=== PATIENT | female | born 2005 | race Caucasian/White ===

== ENCOUNTER 2024-12-22 22:45 | Observation (INO) ==
[2024-12-22] MEDS: ACETAMINOPHEN 900 MG/90 ML BAG IV ONE (23:55)
[2024-12-23 00:06] LABS: CREATININE 0.59 mg/dL (0.60-1.30)
[2024-12-23 00:16] LABS: IMMATURE GRANULOCYTE # (AUTO) 0.1 (0.0-1.0); IMMATURE GRANULOCYTE % (AUTO) 0.4 % (0.0-5.0); RDW COEFFICIENT OF VARIATION 11.8 % (11.6-14.8)
--- NOTE | 2024-12-23 00:21 | ED.PDOC ---
General HPI ED Provider: Dr. 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 She stopped and had difficulty walking and it felt like her previous femoral neck stress fracture in [facility]. She didn't fall, tripped and was running on grass and pavement. 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 She average running 100-120 miles a week since February; prior to that, she was running about 80 miles a week. Time Seen by Provider: 12/22/24 23:23 Mode of Arrival: Walk-In Information Source: Patient Exam Limitations: No limitations Referred to ED by: Other (Self) Nursing and Triage Documentation Reviewed and Agree: Yes Opioid Naive vs. Tolerant Does Patient Take Opioids?: No What is Opioid Naive?: *Opioid Naive implies the patient is not already taking opioids or not chronically receiving opioids on a daily basis. *PRN dosing is not "usually" associated with tolerance. *Patients are at higher risk of over-sedation and aspiration. What is Opioid Tolerant?: *Opioid Tolerance implies less than the expected response to an opioid. *Acquired tolerance is defined by the patient taking 60mg of oral morphine daily (or equianalgesic dose of another opioid) for 1 week or more. *Often associated with chronic pain. *May take more than usual dose to achieve desired pain control. Review of Systems Review Of Systems Constitutional: Reports No symptoms Ears, Nose, Mouth, Throat: Reports No symptoms Respiratory: Reports No symptoms Cardiac: Reports No symptoms GI: Reports No symptoms Musculoskeletal: Reports Joint pain; Denies Back pain or Neck pain Skin: Reports No symptoms Neurological: Reports No symptoms Physical Exam Physical Exam Appearance: Reports Well-appearing and Well-nourished Ill-appearing: None Pain Distress: Moderate Eyes: Reports EOMI Neck: Supple Respiratory: Reports Airway patent, Breath sounds clear and Breath sounds diminished Cardiovascular: Reports RRR, Pulses normal and No rub GI/: Reports Soft, Nontender and No masses Musculoskeletal: Reports Normal strength and ROM intact Skin: Reports Warm, Dry and Normal color Neurological: Reports Sensation intact and Motor intact (limited L hip flexion due to pain. ) Psychiatric: Reports Affect appropriate and Mood appropriate Course Course 12/22/24 23:49 12/22/24 23:49 Orders, Labs, Meds: Lab Review 12/22/24 12/23/24 23:49 00:20 WBC 14.22 H RBC 4.33 Hgb 13.3 Hct 40.1 MCV 92.6 MCH 30.7 MCHC 33.2 RDW Coeff of Kirk 11.8 Plt Count 271 Immature Gran % (Auto) 0.4 Neut % (Auto) 77.3 H Lymph % (Auto) 12.0 [place] % (Auto) 9.3 Eos % (Auto) 0.5 Baso % (Auto) 0.5 Neut # (Auto) 11.0 H Lymph # (Auto) 1.7 [place] # (Auto) 1.3 Eos # (Auto) 0.1 Baso # (Auto) 0.1 Immature Gran # (Auto) 0.1 Sodium 134.5 Potassium 3.67 Chloride 104.9 Carbon Dioxide 25.2 Anion Gap 8.07 BUN 16.8 Creatinine 0.59 L Estimated GFR (MDRD) 129.00 BUN/Creatinine Ratio 28.47 Glucose 89.6 Calcium 9.14 Total Bilirubin 0.58 AST 334.2 H ALT 69.8 H Alkaline Phosphatase 82.1 Total Creatine Kinase 8925.7 H CK-MB (CK-2) 270.000 H* CK-MB (CK-2) % 3.0200 Total Protein 6.83 Albumin 3.84 Globulin 2.99 Albumin/Globulin Ratio 1.28 Urine Color Yellow Urine Clarity Clear Urine pH 7.0 Ur Specific [place] 1.025 Urine Protein 1+ H Urine Glucose (UA) Negative Urine Ketones Negative Urine Blood Negative Urine Nitrite Negative Urine Bilirubin Negative Urine Urobilinogen 0.2 Ur Leukocyte Esterase Negative Urine Microscopic RBC 0-2 Urine Microscopic WBC 2-5 Ur Squamous Epith Cells 5-10 Urine Mucus 2+ Orders Category Date Time Status PLACE PATIENT OBSERVATION .TO [facility] (NON-MONITORED ADMISSION 12/23/24 01:48 Ordered BED) ACTIVITY .Up ad Silvina CARE 12/23/24 01:48 Ordered INTAKE & OUTPUT Q8HR CARE 12/23/24 01:47 Ordered IP: INSERT SALINE LOCK ONCE CARE 12/23/24 01:47 Ordered VITAL SIGNS Q8HR CARE 12/23/24 01:47 Ordered REGULAR DIET DIETARY 12/23/24 Breakfast Ordered Saline Lock [ED IV/MEDIPORT/POWERPORT] .ONCE EMERGENCY 12/22/24 23:31 Active CBC W/ AUTO DIFF Stat LAB 12/23/24 00:00 Completed CMP [COMPREHENSIVE METABOLIC PANEL] Stat LAB 12/22/24 23:49 Completed COMPREHENSIVE METABOLIC PANEL DAILY@0600 LAB 12/23/24 06:00 Ordered COMPREHENSIVE METABOLIC PANEL DAILY@0600 LAB 12/24/24 06:00 Ordered CPK [CREATINE KINASE] Stat LAB 12/22/24 23:49 Completed CREATINE KINASE Q8H LAB 12/23/24 08:00 Ordered CREATINE KINASE Q8H LAB 12/23/24 16:00 Ordered URINALYSIS C & S IF INDICATED Stat LAB 12/23/24 00:20 Completed 0.9 % Sodium Chloride [Saline Flush] Meds 12/22/24 23:31 Active 1 syr IVF PRN PRN Acetaminophen Meds 12/22/24 23:31 Discontinued 900 mg in 90 ml IV ONCE Fentanyl Citrate/Pf [Sublimaze] Meds 12/23/24 01:54 Ordered 50 mcg IVP Q4HR PRN Hydrocodone Bit/Acetaminophen [Sharon 5-325] Meds 12/23/24 01:48 Ordered 1 tab PO Q4-6H PRN Ondansetron HCl/Pf [Zofran Sdv] Meds 12/23/24 01:48 Ordered 4 mg IVP Q6-8H PRN Sodium Chloride 0.9% [Sodium Chloride] 1,000 ml Meds 12/23/24 02:00 Ordered IV 150 mls/hr Sodium Chloride 0.9% [Sodium Chloride] 1,000 ml Meds 12/23/24 00:12 Active IV 250 mls/hr RESUSCITATION STATUS Routine OTHERS 12/23/24 01:[address] HIP LEFT WITHOUT CONTRAST Stat RADS 12/23/24 00:31 Completed HIP, LEFT 2VWS W OR W/O PELVIS Stat RADS 12/22/24 23:31 Completed Medications Generic Name Dose Route Start Last Admin Trade Name Freq PRN Reason Stop Dose Admin Sodium Chloride 1,000 mls @ 250 mls/hr 12/23/24 00:12 12/23/24 00:23 Sodium Chloride IV 12/23/24 04:11 250 mls/hr .Q4H ONE Administration Sodium Chloride 1 syr 12/22/24 23:31 0.9% Sodium Chloride 10 Ml Disp.Syrin IVF PRN PRN To flush IV Discontinued Medications Generic Name Dose Route Start Last Admin Trade Name Freq PRN Reason Stop Dose Admin Acetaminophen 900 mg in 90 mls @ 400 mls/hr 12/22/24 23:31 12/22/24 23:55 Acetaminophen 15 mg/kg (900 mg) 12/22/24 23:44 400 mls/hr IV Administration ONCE ONE Suspected rhabdomyolysis and possible hairline fx. CT scan of the hip neg for fracture. Will admit to [facility] for IV hydration. She is in [employer] and due to fly back soon Vital Signs: Temp Pulse Resp BP Pulse Ox 12/22/24 22:54 98.0 F 68 16 106/75 100 Discharge Plan Discharge Patient Disposition: PLACED OBSERVATION Discharge Problem: Exertional rhabdomyolysis, Acute pain of left hip Did you review [place] [facility] for ALL controlled substances?: Not Applicable ED Provider: SHIRA HYMAN Condition: Fair
[2024-12-23] MEDS: SODIUM CHLORIDE 1,000 ML IV ONE (00:23)
[2024-12-23 00:30] LABS: GLUCOSE, URINE (UA) Negative (NEGATIVE); LEUKOCYTE ESTERASE ,URINE Negative (NEGATIVE); URINE, BLOOD Negative (NEGATIVE)
[2024-12-23 00:31] LABS: URINE RBC, MICROSCOPIC 0-2 (0-2)
[2024-12-23 00:38] LABS: CKMB % 3.02
[2024-12-23 00:39] LABS: CREATINE KINASE MB 270.0 ng/ml (0.0-2.38)
--- NOTE | 2024-12-23 01:32 | CT ---
EXAM: CT OF THE LEFT HIP WITHOUT CONTRAST TECHNIQUE: CT of the left hip was performed without IV contrast. Multiplanar reformats were made. HISTORY: Hip pain after a long distance run. COMPARISON: Radiographs 12/23/2024. FINDINGS: No fracture or dislocation. Minor degenerative changes of the left sacroiliac joint, left hip joint, and at the pubic symphysis. IMPRESSION: No acute findings. All CT scans are performed using dose optimization techniques as appropriate to the performed exam and include at least one of the following: Automated exposure control, adjustment of the mA and/or kV according to size, and the use of iterative reconstruction technique.
--- NOTE | 2024-12-23 01:32 | DI ---
EXAM: LEFT HIP 2 VIEW HISTORY: Hip pain IMPRESSION: No bony or articular abnormality of the left hip. Negative exam.
[2024-12-23] MEDS ORDERED: NORCO 5-325 PO PRN (01:48)
[2024-12-23] MEDS ORDERED: ZOFRAN SDV IVP PRN (01:48)
[2024-12-23] MEDS ORDERED: SUBLIMAZE IVP PRN (01:54)
[2024-12-23 03:12] VITALS: BMI 21.7
[2024-12-23] MEDS: SODIUM CHLORIDE 1,000 ML IV SCH (05:17)
[2024-12-23 05:51] LABS: CREATININE 0.58 mg/dL (0.60-1.30)
[2024-12-23] MEDS: SYNTHROID PO SCH (07:57)
[2024-12-23 08:35] LABS: CKMB % 0
[2024-12-23 08:40] LABS: CREATINE KINASE MB 136.000 ng/ml (0.0-2.38)
[2024-12-23] MEDS: TYLENOL PO PRN (10:28)
[2024-12-23 14:56] LABS: CKMB % 0
[2024-12-23 15:01] LABS: CREATINE KINASE MB 79.200 ng/ml (0.0-2.38)
--- NOTE | 2024-12-23 15:09 | PCM ---
Date of Service Date Seen by Provider: 12/23/24 Time Seen by Provider: 09:15 Admit Day/Time Admission Date: 12/23/24 Admission Time: 02:00 Reason for Admission Chief Complaint: LFT LEG INJURY Hospital Provider Hospital Provider: ARMAAN FIERRO, [facility] History of Present Illness History of Present Illness: 19 yo female with pmh of thyroid disease presented to the ER with L hip pain following running the [employer] 100 mile race. Patient states she was only abl e to complete 75 miles due to the pain. States pain is worse with flexing the hip. Xray and CT scan negative. CK found to be 8900. Received 1L NS in ER. Admitted to med/surg observation. Case Discussed With Case Discussed With: Patient's case was discussed with the ER Physicians, Dr. Scanlon. [facility] Medical History (Updated 12/23/24 @ 15:19 by ARMAAN FIERRO) Thyroid disease E07.9 - Disorder of thyroid, unspecified (ICD-10) Surgical History No history of previous surgery Family History MATERNAL GRANDMOTHER Colon cancer Other Cancer Social History Smoking and tobacco status: Never smoker Alcohol intake: current Alcohol intake frequency: holidays/special occasions only Counseling given: No Details: Occasionally has a drink Substance use type: does not use Special mira needs: No Agree to transfusion: Yes Adopted: No Caregiver/support person: No Foster care: No Household members: none Housing: apartment Marital status: S SINGLE Lives independently: Yes Daycare: no daycare Number of children: 0 Highest education level completed: some college, no degree Financial difficulty paying for basics: somewhat hard 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 ([employer]) known or potential exposure: none FDC: No Current occupational status: student Current occupation: Student/[employer] Current occupational exposures/hazards: Yes Pets and animals: No Leisure activites: sports and exercise History of recent travel: Yes (Just in the continental [place]) Sexually active: No Do you think of yourself as: straight/heterosexual Current gender identity: female Helmet use: Yes Drives intoxicated or rides with intoxicated lifter driver: No Current diet type/program: vegetarian Well-balanced diet: daily Water heater temperature set < 120 degrees: Yes Working smoke detector in home: Yes Fire extinguisher in home: Yes Carbon monoxide detector in home: No Firearms in home: No What type of physical activity do you participate in?: running Allergies Allergies Allergy/AdvReac Type Severity Reaction Status Date / Time No Known Allergies Allergy Verified 12/22/24 23:03 Current Medications Home Medications Acetaminophen (Acetaminophen 325 Mg Tablet) 650 mg PO Q4H PRN PRN Reason: Pain Last Admin: 12/23/24 10:28 Dose: 650 mg Sodium Chloride (Sodium Chloride) 1,000 mls @ 150 mls/hr IV .Q6H40M [facility] Last Admin: 12/23/24 13:43 Dose: 150 mls/hr Levothyroxine Sodium (Levothyroxine Sodium 50 Mcg Tablet) 50 mcg PO QDAC2 [facility] Last Admin: 12/23/24 07:57 Dose: 50 mcg Ondansetron HCl (Ondansetron Hcl/Pf 4 Mg/2 Ml Sdv) 4 mg IVP Q6-8H PRN PRN Reason: Nausea / Vomiting Sodium Chloride (0.9% Sodium Chloride 10 Ml Disp.Syrin) 1 syr IVF PRN PRN PRN Reason: To flush IV levothyroxine 50 mcg tablet (Euthyrox) 50 mcg PO DAILY 12/22/24 [History Confirmed 12/23/24] Opioid Naive vs. Tolerant Does Patient Take Opioids?: No Is Patient Opioid Naive?: Yes What is Opioid Naive?: *Opioid Naive implies the patient is not already taking opioids or not chronically receiving opioids on a daily basis. *PRN dosing is not "usually" associated with tolerance. *Patients are at higher risk of over-sedation and aspiration. Is Patient Opioid Tolerant?: No What is Opioid Tolerant?: *Opioid Tolerance implies less than the expected response to an opioid. *Acquired tolerance is defined by the patient taking 60mg of oral morphine daily (or equianalgesic dose of another opioid) for 1 week or more. *Often associated with chronic pain. *May take more than usual dose to achieve desired pain control. Review of Systems Constitutional: Reports No symptoms Head: Reports Normocephalic Eyes: Reports No symptoms Ears: Reports No symptoms Nose: Reports No symptoms Mouth: Reports No symptoms Throat: Reports No symptoms Cardiovascular: Reports No symptoms Respiratory: Reports No symptoms Gastrointestinal: Reports No symptoms Genitourinary: Reports No Symptoms Musculoskeletal: Reports Muscle Pain (L hip/groin) Endocrine: Reports No symptoms Hematology: Reports No symptoms Immunology: Reports No symptoms Neurological: Reports No symptoms Psychiatric: Reports No symptoms Physical examination Most Recent Vital Signs: Most Recent Vital Signs Temperature 97.0 F L 12/23/24 10:11 Temperature Source Temporal Artery Scan 12/23/24 10:11 Temperature Source Infrared 12/22/24 22:54 Pulse Rate 58 L 12/23/24 10:11 Respiratory Rate 14 12/23/24 10:11 Blood Pressure 102/61 12/23/24 10:11 Blood Pressure Mean 74 12/23/24 10:11 Blood Pressure Right Arm 116/65 12/23/24 02:31 Blood Pressure Location Right Arm 12/23/24 10:11 Blood Pressure Position Supine 12/23/24 05:17 O2 Sat by Pulse Oximetry 100 12/23/24 10:11 Oxygen Delivery Method Room Air 12/23/24 13:00 Height 5 ft 6 in 12/23/24 02:31 Weight 60.9 kg 12/23/24 02:31 Appearance: Positive No Apparent Distress and Alert and Oriented x3 Skin: Positive Warm and Good Color HEENT: Positive Normocephalic and PERRLA Neck: Positive Supple and Midline Trachea Chest/Lungs: Positive Symmetrical With Equal Breath Sounds, Clear to Auscultation Bilaterally and Good Air Movement all 4 Lung [place] Heart: Positive RRR and Pulses Normal GI/: Positive Soft, Nontender, Bowel Sounds Normal and No Distention Musculoskeletal: Positive Tenderness (L groin) Extremities: Positive Intact Peripheral Pulses, Stable Joints Without Laxity and Good ROM in All Joints; Negative Edema Neurological: Positive Sensation Intact, Motor intact, Reflexes Intact, Alert, Oriented and Other (generalized weakness, shaky) Labs This Visit Labs This Visit: Labs This Visit 12/22/24 12/23/24 12/23/24 23:49 00:20 05:32 WBC 14.22 H RBC 4.33 Hgb 13.3 Hct 40.1 MCV 92.6 MCH 30.7 MCHC 33.2 RDW Coeff of Kirk 11.8 Plt Count 271 Immature Gran % (Auto) 0.4 Neut % (Auto) 77.3 H Lymph % (Auto) 12.0 [place] % (Auto) 9.3 Eos % (Auto) 0.5 Baso % (Auto) 0.5 Neut # (Auto) 11.0 H Lymph # (Auto) 1.7 [place] # (Auto) 1.3 Eos # (Auto) 0.1 Baso # (Auto) 0.1 Immature Gran # (Auto) 0.1 Sodium 134.5 133.3 L Potassium 3.67 3.81 Chloride 104.9 107.6 H Carbon Dioxide 25.2 24.0 Anion Gap 8.07 5.51 BUN 16.8 14.9 Creatinine 0.59 L 0.58 L Estimated GFR (MDRD) 129.00 131.00 BUN/Creatinine Ratio 28.47 25.68 Glucose 89.6 87.1 Calcium 9.14 8.51 Total Bilirubin 0.58 0.74 AST 334.2 H 276.3 H D ALT 69.8 H 62.7 H Alkaline Phosphatase 82.1 64.3 Total Creatine Kinase 8925.7 H CK-MB (CK-2) 270.000 H* CK-MB (CK-2) % 3.0200 Total Protein 6.83 5.84 L Albumin 3.84 3.19 L Globulin 2.99 2.65 Albumin/Globulin Ratio 1.28 1.20 Urine Color Yellow Urine Clarity Clear Urine pH 7.0 Ur Specific [place] 1.025 Urine Protein 1+ H Urine Glucose (UA) Negative Urine Ketones Negative Urine Blood Negative Urine Nitrite Negative Urine Bilirubin Negative Urine Urobilinogen 0.2 Ur Leukocyte Esterase Negative Urine Microscopic RBC 0-2 Urine Microscopic WBC 2-5 Ur Squamous Epith Cells 5-10 Urine Mucus 2+ 12/23/24 12/23/24 07:57 14:05 WBC RBC Hgb Hct MCV MCH MCHC RDW Coeff of Kirk Plt Count Immature Gran % (Auto) Neut % (Auto) Lymph % (Auto) [place] % (Auto) Eos % (Auto) Baso % (Auto) Neut # (Auto) Lymph # (Auto) [place] # (Auto) Eos # (Auto) Baso # (Auto) Immature Gran # (Auto) Sodium Potassium Chloride Carbon Dioxide Anion Gap BUN Creatinine Estimated GFR (MDRD) BUN/Creatinine Ratio Glucose Calcium Total Bilirubin AST ALT Alkaline Phosphatase Total Creatine Kinase > 3200.0 H > 3200.0 H CK-MB (CK-2) 136.000 H* 79.200 H* CK-MB (CK-2) % 0 0 Total Protein Albumin Globulin Albumin/Globulin Ratio Urine Color Urine Clarity Urine pH Ur Specific [place] Urine Protein Urine Glucose (UA) Urine Ketones Urine Blood Urine Nitrite Urine Bilirubin Urine Urobilinogen Ur Leukocyte Esterase Urine Microscopic RBC Urine Microscopic WBC Ur Squamous Epith Cells Urine Mucus Imaging Imaging: EXAM: LEFT HIP 2 VIEW HISTORY: Hip pain IMPRESSION: No bony or articular abnormality of the left hip. Negative exam. EXAM: CT OF THE LEFT HIP WITHOUT CONTRAST TECHNIQUE: CT of the left hip was performed without IV contrast. Multiplanar reformats were made. HISTORY: Hip pain after a long distance run. COMPARISON: Radiographs 12/23/2024. FINDINGS: No fracture or dislocation. Minor degenerative changes of the left sacroiliac joint, left hip joint, and at the pubic symphysis. IMPRESSION: No acute findings. Review Statement Review Statement: I have independently reviewed and interpreted the labs/EKGs/imaging that were ordered by the ER provider. I have reviewed all outside records that are available currently in our EMR including imaging/notes/labs from previous visits. Plan Plan: 1. Rhabdomyolysis - serial CK, NS@150mL/hr, avoid nephrotoxins 2. Transaminitis - mild, due to above, trending down, no abd pain 3. Leukocytosis - mild, likely reactive due to above, no fever, UA negative, no s/sx 4. L hip flexor strain - tylenol, ice, rest 5. Thyroid Disease - continue home medications DVT Prophylaxis: Ambulation Time Spent: Greater than 80 minutes spent with patient, 50% of the time spent with this patient was devoted to counseling and coordination of care. Advanced Care Plannin minutes spent discussing advance care planning. Disposition: Admit to: Med/Surg Observation Full Code Discussed Plan of Care with Dr. Degroot. Medications Medication Orders: Medications Ordered Category Date Time Status 0.9 % Sodium Chloride [Saline Flush] Meds 12/22/24 23:31 Active 1 syr IVF PRN PRN Acetaminophen [Tylenol] Meds 12/23/24 09:30 Active 650 mg PO Q4H PRN Levothyroxine Sodium [Synthroid] Meds 12/23/24 07:30 Active 50 mcg PO QDAC2 Ondansetron HCl/Pf [Zofran Sdv] Meds 12/23/24 01:48 Active 4 mg IVP Q6-8H PRN Sodium Chloride 0.9% [Sodium Chloride] 1,000 ml Meds 12/23/24 02:00 Active IV 150 mls/hr
[2024-12-23 21:15] LABS: CKMB % 0
[2024-12-23 21:17] LABS: CREATINE KINASE MB 50.700 ng/ml (0.0-2.38)
[2024-12-24 05:35] LABS: IMMATURE GRANULOCYTE # (AUTO) 0.0 (0.0-1.0); IMMATURE GRANULOCYTE % (AUTO) 0.2 % (0.0-5.0); RDW COEFFICIENT OF VARIATION 12.0 % (11.6-14.8)
[2024-12-24 05:49] LABS: CREATININE 0.55 mg/dL (0.60-1.30)
[2024-12-24 06:04] LABS: CKMB % 1.81
[2024-12-24 06:06] LABS: CREATINE KINASE MB 28.9 ng/ml (0.0-2.38)
[2024-12-24 06:18] VITALS: PULSE 70; RESP 16; TEMP 98.6
[2024-12-24 06:23] VITALS: BP 97/55
--- NOTE | 2024-12-24 11:19 | DCSUM ---
Admission Date Admission Date: 12/23/24 Discharge Date Discharge Date: 12/24/24 Admission Diagnosis Admission Diagnosis: 1. Rhabdomyolysis 2. Transaminitis 3. Leukocytosis 4. L hip flexor strain Discharge Diagnosis Discharge Diagnosis: 1. Rhabdomyolysis - Improved 2. Transaminitis - Improved 3. Leukocytosis - Improved 4. L hip flexor strain - Improved 5. Thyroid Disease - Chronic Hospital Provider Hospital Provider: DEBBIE MACHADO PA-C, [facility] Summary of History and Physical Summary of History and Physical: 19 yo female with pmh of thyroid disease presented to the ER with L hip pain following running the [employer] 100 mile race. Patient states she was only able to complete 75 miles due to the pain. States pain is worse with flexing the hip. Xray and CT scan negative. CK found to be 8900. Received 1L NS in ER. Admitted to med/surg observation. Hospital Course Subjective: Overall patient had an uneventful stay. CK improved with IV fluids. LFTs and WBC count has improved. She continues to have pain in her left hip and is unable to flex her hip. She understands that this will take time to improve. Recommended rest, ICE tylenol. Advised if no improvement within 2 weeks to follow up with PCP for possible further imaging. She was offered crutches but denies. Mother is here with her today and will help her get back to [place]. She already has a plan for travel/flights back home. Advised to push fluids over next few days. Appearance: Pleasant, No Apparent Distress, Alert and Well-appearing HEENT: MMM and Supple CVS: Other (RRR) Abdomen: Soft and Non-Tender Respiratory: No Dyspnea Extremities: No Edema Vital Signs: Most Recent Vital Signs Temperature 98.6 F 12/24/24 06:00 Temperature Source Oral 12/24/24 06:00 Temperature Source Infrared 12/22/24 22:54 Pulse Rate 70 12/24/24 06:00 Respiratory Rate 16 12/24/24 06:00 Blood Pressure 97/55 L 12/24/24 06:00 Blood Pressure Mean 69 12/24/24 06:00 Blood Pressure Right Arm 116/65 12/23/24 02:31 Blood Pressure Location Right Arm 12/24/24 06:00 Blood Pressure Position Supine 12/24/24 06:00 O2 Sat by Pulse Oximetry 99 12/24/24 06:00 Oxygen Delivery Method Room Air 12/24/24 11:00 Height 5 ft 6 in 12/23/24 02:31 Weight 60.9 kg 12/23/24 02:31 Imaging: EXAM: LEFT HIP 2 VIEW HISTORY: Hip pain IMPRESSION: No bony or articular abnormality of the left hip. Negative exam. EXAM: CT OF THE LEFT HIP WITHOUT CONTRAST TECHNIQUE: CT of the left hip was performed without IV contrast. Multiplanar reformats were made. HISTORY: Hip pain after a long distance run. COMPARISON: Radiographs 12/23/2024. FINDINGS: No fracture or dislocation. Minor degenerative changes of the left sacroiliac joint, left hip joint, and at the pubic symphysis. Lab Results Last 24 Hours: 12/24/24 12/23/24 12/23/24 05:24 20:04 14:05 WBC 6.39 D RBC 3.58 L Hgb 11.0 L Hct 34.2 L MCV 95.5 MCH 30.7 MCHC 32.2 RDW Coeff of Kirk 12.0 Plt Count 193 Immature Gran % (Auto) 0.2 Neut % (Auto) 52.6 Lymph % (Auto) 26.0 [place] % (Auto) 9.9 Eos % (Auto) 10.8 H Baso % (Auto) 0.5 Neut # (Auto) 3.4 Lymph # (Auto) 1.7 [place] # (Auto) 0.6 Eos # (Auto) 0.7 Baso # (Auto) 0.0 Immature Gran # (Auto) 0.0 Sodium 134.5 Potassium 3.67 Chloride 109.7 H Carbon Dioxide 24.2 Anion Gap 4.27 BUN 9.6 Creatinine 0.55 L Estimated GFR (MDRD) 140.00 BUN/Creatinine Ratio 17.45 Glucose 82.2 Calcium 7.87 L Total Bilirubin 0.40 AST 174.2 H D ALT 59.5 H Alkaline Phosphatase 56.6 Total Creatine Kinase 1593.9 H > 1600.0 H > 3200.0 H CK-MB (CK-2) 28.900 H* 50.700 H* 79.200 H* CK-MB (CK-2) % 1.8100 0 0 Total Protein 5.28 L Albumin 2.78 L Globulin 2.50 Albumin/Globulin Ratio 1.11 Discharge Instructions Discharge Planning: Discharge Planning > [address] Doyle Degroot Discharge Medications: Home Medications levothyroxine 50 mcg tablet (Euthyrox) 50 mcg PO DAILY 12/22/24 Discharge Plan Discharge Discharge Orders: Discharge Patient (ONCE); Ordered 12/24/24 Ordered By: DEBBIE MACHADO Activity Restrictions/Additional Instructions: DISCHARGE TO HOME DX: RHABDO, LEFT HIP PAIN PUSH FLUIDS WITH ELECTROLYTES FOLLOW UP WITH YOUR PCP WITHIN 1 WEEK REST, ICE, TYLENOL NEEDED FOR PAIN Care Plan Goals: Problem: Alteration in Comfort/Pain Goal: Manage pain at a tolerable level Instructions: Monitor character, location and intensity Express expectations of pain relief Pain medication as ordered Position for maximal comfort Pain management prior to activities Problem: Risk for falls Goal: No falls or injury Instructions: Have no throw rugs on the floor Make sure pathway is clear of all objects Use assistance devices if applicable Patient Disposition: HOME SELF-CARE Prescriptions: Continued levothyroxine [Euthyrox] 50 mcg tablet 50 mcg PO DAILY Did you review [place] [employer] SU[employer] SPECIALIST for ALL controlled substances?: Not Applicable Discussed opioids are addictive and Narcan is available by prescription or from pharmacy.: No Condition: Stable
== END 2024-12-24 11:25 | disposition home or self-care (01) ==
LOC: ED 22:45 → MEDSURG B 22:45
PROVIDERS: ADMIT Hospitalist; ATTEND Physician Assistant
DX: M62.82 Rhabdomyolysis; Z79.899 Other long term (current) drug therapy; D72.829 Elevated white blood cell count, unspecified; Z51.81 Encounter for therapeutic drug level monitoring; E07.9 Disorder of thyroid, unspecified; R74.01 Elevation of levels of liver transaminase levels; M62.81 Muscle weakness (generalized); S76.012A Strain of muscle, fascia and tendon of left hip, initial encounter